=== PATIENT | female | born 1945 | race Caucasian/White ===

== ENCOUNTER → 2019-07-18 | Outpatient (CLI) | payer MEDICARE ==
[~2019-07-18] MED LIST: ACET500 PO; ALBU3IS INH; ALBU90OI INH; ALPR.5 PO; ALPR1; AMIT25; ASPI81CH PO; ASPI81EC PO; Augmentin 875-1 EACH PO; Bacid1 EACH PO; CENTRUM COMPLE1 EACH PO; CENTRUM SILVER1 EACH; CENTRUM SILVER1 EACH PO; CEPH500 PO; CIPR750 PO; CITA20 PO; Ceftriaxone2 G1 IV; DONE5 PO; ERGO400 PO; ESCI10; FERR325 PO; FISH1000 PO; GABA100 PO; HYDACE5 PO; HYDACE5325; HYDCHL25 PO; HYDR1TAB94 PO; HYDROCODON-ACE1 EAC3 PO; IBUP800 PO; INSULANI; INSULANPEN SC; IRON236 MG PO; LEVO750 PO; LISI20 PO; LOVA20 PO; Lisinopril2.5 MG; METF500; METF500 PO; METR500 PO; MULVITMINF PO; Mucinex600 MG PO; NAPR220 PO; NATE60; OSEL75CA PO; OXYACE5T PO; OXYB5; OXYB5 PO; OXYC5 PO; POTCHL10ER; PRAV20 PO; PRED10 PO; PRED20 PO; PROP60 PO; Prednisone20 MG PO; ROSU10TA; TIOT18 INH; ZAFI20; [UNRECOGNIZED DRUG - OTHER]; [UNRECOGNIZED DRUG - REMARK]
== END | disposition home or self-care (01) ==
LOC: LAB SHORT 13:37 → LAB 13:37
DX: R82.998 Other abnormal findings in urine (principal)
CPT/HCPCS: 87077; 87086; 87186

== ENCOUNTER 2020-09-30 18:46 | Emergency (ER) | payer MEDICARE ==
[~2020-09-30] VITALS: Ht 162.6 cm; Wt 65.8 kg
[2020-09-30 19:24] LABS: BASOPHILS ABSOLUTE AUTO 0.03 K/mm3 (0.00-0.23); BASOPHILS PERCENT AUTO 0 % (0-2); EOSINOPHILS ABSOLUTE AUTO 0.15 K/mm3 (0.00-0.68); EOSINOPHILS PERCENT AUTO 2 % (0-6); Hematocrit 45.1 % (33.0-51.0); Hemoglobin 15.2 g/dL (11.5-16.0); IMMATURE GRAN ABSOLUTE AUTO 0.02 K/mm3 (0.00-0.10); IMMATURE GRAN PERCENT AUTO 0 % (0-1); LYMPHOCYTES ABSOLUTE AUTO 2.57 K/mm3 (0.84-5.20); LYMPHOCYTES PERCENT AUTO 34 % (21-46); MONOCYTES ABSOLUTE AUTO 0.32 K/mm3 (0.16-1.47); MONOCYTES PERCENT AUTO 4 % (4-13); Mean Corpuscular HGB Conc 33.7 g/dL (31.5-36.5); Mean Corpuscular Volume 92 fL (80-100); NEUTROPHILS ABSOLUTE AUTO 4.42 K/mm3 (1.96-9.15); NEUTROPHILS PERCENT AUTO 59 % (41-73); Platelet Count 86 K/mm3 (150-400); RDW Coefficient Variation 12.2 % (11.7-14.2); RDW Standard Deviation 41.6 fL (35.1-46.3); White Blood Cell Count 7.51 K/mm3 (4.00-11.30)
[2020-09-30 19:39] LABS: Alanine Aminotransfer (ALT/SGP 40 U/L (12-78); Albumin, Blood 3.1 g/dL (3.4-5.0); Albumin/Globulin Ratio 0.8 (0.8-1.8); Alk Phos 66 U/L (50-136); Anion Gap 6 mmol/L (6-16); Aspartate Aminotrans (AST/SGOT 26 U/L (12-37); Bilirubin, Total 0.3 mg/dL (0.1-1.0); Blood Urea Nitrogen 19 mg/dL (8-24); Bun/Creatinine Ratio 22.5 (12.0-20.0); CO2, Blood 28 mmol/L (21-32); Calcium, Blood 9.6 mg/dL (8.5-10.1); Chloride, Blood 109 mmol/L (98-108); Creatinine, Blood 0.85 mg/dL (0.40-1.00); Globulin, Blood 3.7 g/dL (2.2-4.0); Glomerular Filtration Rate >60 (60-); Glucose, Blood 133 mg/dL (70-99); Mean Platelet Volume 12.8 fL (9.1-12.4); Sodium, Blood 143 mmol/L (136-145); Total Protein, Blood 6.8 g/dL (6.4-8.2)
[2020-09-30 21:59] LABS: Source, Urine Clean Catch
[2020-09-30 22:06] LABS: Appearance, Urine Cloudy (Clear); Bilirubin, Urine Neg (Neg); Blood, Urine 1+ (Neg); Color, Urine Yellow (P-Yellow); Glucose Qualitative, Urine Neg (Neg); Ketones, Urine 1+ (Neg); Leukocyte Esterase, Urine 1+ (Neg); Nitrite, Urine Neg (Neg); Protein, Urine 4+ (Neg); Urobilinogen, Urine NORM (Normal)
[2020-09-30 22:17] LABS: Bacteria Many /hpf; Red Blood Cells, Urine 0-2 /hpf (0-2); Squamous Epithelial Cells Few /hpf (Few)
== END 2020-09-30 22:00 | disposition left against medical advice (07) ==
LOC: ER 18:46
PROVIDERS: Emergency Medicine
DX: R42 Dizziness and giddiness (principal); R53.1 Weakness; Z53.21 Procedure and treatment not carried out due to patient leaving prior to being seen by health care provider
CPT/HCPCS: 36415; 80053; 81001; 85025; 87086; 93005; 93010

== ENCOUNTER 2021-03-03 16:49 | Emergency (ER) | payer MEDICARE | END 2021-03-03 17:40 | disposition left against medical advice (07) | LOC: ER 16:49 | DX: Z53.21 Procedure and treatment not carried out due to patient leaving prior to being seen by health care provider (principal) ==

== ENCOUNTER 2022-10-31 21:48 | Emergency (ER) | payer MEDICARE ==
[~2022-10-31] VITALS: Ht 167.6 cm; Wt 79.4 kg
[2022-10-31 22:43] LABS: BASOPHILS ABSOLUTE AUTO 0.02 K/mm3 (0.00-0.23); BASOPHILS PERCENT AUTO 0 % (0-2); EOSINOPHILS PERCENT AUTO 0 % (0-6); Hematocrit 36.2 % (33.0-51.0); Hemoglobin 12.4 g/dL (11.5-16.0); IMMATURE GRAN ABSOLUTE AUTO 0.05 K/mm3 (0.00-0.10); IMMATURE GRAN PERCENT AUTO 1 % (0-1); LYMPHOCYTES ABSOLUTE AUTO 0.76 K/mm3 (0.84-5.20); LYMPHOCYTES PERCENT AUTO 8 % (21-46); MONOCYTES ABSOLUTE AUTO 0.79 K/mm3 (0.16-1.47); MONOCYTES PERCENT AUTO 8 % (4-13); Mean Corpuscular HGB 30.9 pg (26.0-34.0); Mean Corpuscular HGB Conc 34.3 g/dL (31.5-36.5); Mean Corpuscular Volume 90 fL (80-100); Mean Platelet Volume 12.6 fL (9.1-12.4); NEUTROPHILS ABSOLUTE AUTO 8.17 K/mm3 (1.96-9.15); NEUTROPHILS PERCENT AUTO 83 % (41-73); Platelet Count 57 K/mm3 (150-400); RDW Coefficient Variation 13.3 % (11.7-14.2); RDW Standard Deviation 44.3 fL (35.1-46.3); Red Blood Cell Count 4.01 M/mm3 (3.80-5.20); White Blood Cell Count 9.79 K/mm3 (4.00-11.30)
[2022-10-31 23:08] LABS: Albumin, Blood 2.4 g/dL (3.4-5.0); Albumin/Globulin Ratio 0.6 (0.8-1.8); Bilirubin, Total 0.5 mg/dL (0.1-1.0); Calcium, Blood 8.3 mg/dL (8.5-10.1); Creatinine, Blood 1.04 mg/dL (0.40-1.00); Globulin, Blood 3.8 g/dL (2.2-4.0); Thyroid Stimulating Hormone 1.38 uIU/mL (0.360-4.800); Total Protein, Blood 6.2 g/dL (6.4-8.2)
[2022-10-31 23:54] LABS: Influenza A, PCR NEGATIVE (NEGATIVE); Influenza B, PCR NEGATIVE (NEGATIVE); Resp Syncytial Virus, PCR NEGATIVE (NEGATIVE); SARS-Cov-2 (COVID-19) PCR, MMC NEGATIVE (NEGATIVE)
[2022-11-01 02:28] LABS: Source, Urine Straight Cath
[2022-11-01 02:35] LABS: Bilirubin, Urine Neg (Neg); Blood, Urine 4+ (Neg); Glucose Qualitative, Urine Neg (Neg); Ketones, Urine Neg (Neg); Leukocyte Esterase, Urine 3+ (Neg); Nitrite, Urine Pos (Neg); Protein, Urine 4+ (Neg); Specific Gravity, Urine 1.015 (1.003-1.022); Urobilinogen, Urine NORM (Normal)
[2022-11-01 04:41] LABS: Appearance, Urine Hazy (Clear); Color, Urine Yellow (P-Yellow)
[2022-11-01 04:42] LABS: White Blood Cells, Urine 50-100 /hpf (0-5)
[2022-11-01 04:44] LABS: Bacteria Many /hpf; Squamous Epithelial Cells Rare /hpf (Few)
[2022-11-01] MEDS ORDERED: CEFD300 PO (05:00)
== END 2022-11-01 06:25 | disposition home or self-care (01) ==
LOC: ER 21:48
PROVIDERS: Emergency Medicine
DX: N39.0 Urinary tract infection, site not specified (principal); R41.0 Disorientation, unspecified; E11.9 Type 2 diabetes mellitus without complications; I10 Essential (primary) hypertension; J44.9 Chronic obstructive pulmonary disease, unspecified; F03.90 Unspecified dementia, unspecified severity, without behavioral disturbance, psychotic disturbance, mood disturbance, and anxiety; F17.200 Nicotine dependence, unspecified, uncomplicated; Z79.899 Other long term (current) drug therapy; Z79.82 Long term (current) use of aspirin; Z79.4 Long term (current) use of insulin; Z79.52 Long term (current) use of systemic steroids; Z20.822 Contact with and (suspected) exposure to COVID-19
CPT/HCPCS: 0241U; 51701; 71045; 80053; 81001; 84443; 85025; A9270; J0696; J2250; J3010

== ENCOUNTER 2023-09-05 10:41 | Emergency (ER) | payer MEDICARE ==
[~2023-09-05] VITALS: Ht 160 cm; Wt 68.0 kg
[~2023-09-05 10:41] MED LIST changes: +CEFD300 PO
[2023-09-05 11:06] LABS: BASOPHILS ABSOLUTE AUTO 0.03 K/mm3 (0.00-0.23); BASOPHILS PERCENT AUTO 1 % (0-2); EOSINOPHILS PERCENT AUTO 2 % (0-6); Hematocrit 41.7 % (33.0-51.0); Hemoglobin 14.1 g/dL (11.5-16.0); IMMATURE GRAN ABSOLUTE AUTO 0.01 K/mm3 (0.00-0.10); IMMATURE GRAN PERCENT AUTO 0 % (0-1); LYMPHOCYTES ABSOLUTE AUTO 1.78 K/mm3 (0.84-5.20); LYMPHOCYTES PERCENT AUTO 27 % (21-46); MONOCYTES ABSOLUTE AUTO 0.28 K/mm3 (0.16-1.47); MONOCYTES PERCENT AUTO 4 % (4-13); Mean Corpuscular HGB 31.6 pg (26.0-34.0); Mean Corpuscular HGB Conc 33.8 g/dL (31.5-36.5); Mean Corpuscular Volume 94 fL (80-100); Mean Platelet Volume 12.5 fL (9.1-12.4); NEUTROPHILS ABSOLUTE AUTO 4.29 K/mm3 (1.96-9.15); NEUTROPHILS PERCENT AUTO 66 % (41-73); Platelet Count 101 K/mm3 (150-400); RDW Coefficient Variation 13.4 % (11.7-14.2); RDW Standard Deviation 46.4 fL (35.1-46.3); Red Blood Cell Count 4.46 M/mm3 (3.80-5.20); White Blood Cell Count 6.49 K/mm3 (4.00-11.30)
[2023-09-05 11:23] LABS: Albumin, Blood 2.7 g/dL (3.4-5.0); Albumin/Globulin Ratio 0.7 (0.8-1.8); Bilirubin, Total 0.3 mg/dL (0.1-1.0); Creatinine, Blood 1.12 mg/dL (0.40-1.00); Globulin, Blood 3.9 g/dL (2.2-4.0); Potassium, Blood 3.9 mmol/L (3.5-5.5); Total Protein, Blood 6.6 g/dL (6.4-8.2)
[2023-09-05 14:29] LABS: Source, Urine Straight Cath
[2023-09-05 14:35] LABS: Appearance, Urine Cloudy (Clear); Bilirubin, Urine Neg (Neg); Blood, Urine 2+ (Neg); Color, Urine Yellow (P-Yellow); Glucose Qualitative, Urine Neg (Neg); Ketones, Urine Neg (Neg); Leukocyte Esterase, Urine 3+ (Neg); Nitrite, Urine Pos (Neg); Protein, Urine 4+ (Neg); Urobilinogen, Urine NORM (Normal)
[2023-09-05 14:54] LABS: Bacteria Many /hpf; Hyaline Casts 0-2 /lpf (0-2); Squamous Epithelial Cells Few /hpf (Few); White Blood Cells, Urine 25-50 /hpf (0-5)
[2023-09-05] MEDS ORDERED: CEPH500 PO (15:36)
[2023-09-05 16:11] VITALS: BP 120/86
== END 2023-09-05 16:12 | disposition home or self-care (01) ==
LOC: ER 10:41
PROVIDERS: Emergency Medicine; Physician Assistant
DX: N39.0 Urinary tract infection, site not specified (principal); G30.9 Alzheimer's disease, unspecified; F02.80 Dementia in other diseases classified elsewhere, unspecified severity, without behavioral disturbance, psychotic disturbance, mood disturbance, and anxiety; E11.9 Type 2 diabetes mellitus without complications; I10 Essential (primary) hypertension; J44.9 Chronic obstructive pulmonary disease, unspecified; F17.210 Nicotine dependence, cigarettes, uncomplicated; Z79.899 Other long term (current) drug therapy; Z79.82 Long term (current) use of aspirin; Z79.4 Long term (current) use of insulin
CPT/HCPCS: 71045; 80053; 81001; 83880; 85025; 93971; 96365; 99284-25; J0696

== ENCOUNTER 2023-12-22 09:37 | Emergency (ER) | payer MEDICARE, OTHER ==
[~2023-12-22] VITALS: Ht 170.2 cm; Wt 68.0 kg
[2023-12-22 13:00] VITALS: BP 184/81
== END 2023-12-22 13:04 | disposition home or self-care (01) ==
LOC: ER 09:37
DX: S00.01XA Abrasion of scalp, initial encounter (principal); M25.561 Pain in right knee; Z51.5 Encounter for palliative care; F17.210 Nicotine dependence, cigarettes, uncomplicated; Z79.899 Other long term (current) drug therapy; E11.9 Type 2 diabetes mellitus without complications; I10 Essential (primary) hypertension; J44.9 Chronic obstructive pulmonary disease, unspecified; F03.90 Unspecified dementia, unspecified severity, without behavioral disturbance, psychotic disturbance, mood disturbance, and anxiety; W22.8XXA Striking against or struck by other objects, initial encounter
CPT/HCPCS: 73560-LT; 73560-RT; 99284-25